=== PATIENT | female | born 1950 | race Caucasian/White ===

== ENCOUNTER → 2021-07-31 | Outpatient (CLI) | payer MEDICARE, BC ==
--- NOTE | 2021-07-31 11:56 | KCIC ---
Examination: MRI of the right hip without contrast HISTORY: History of chronic right hip pain COMPARISON: None available TECHNIQUE: Multiplanar, multisequence MR imaging of the right hip were performed without contrast FINDINGS: Right femoral head is within the acetabulum. The attachment of the hamstring tendon to the ischial tu berosity, attachment of the iliopsoas tendon to the lesser trochanter and the attachment of the rectu s femoris tendon to the anterior inferior iliac spine grossly appears intact. There is increased T2 signal identified in the attachment of the gluteus minimus tendon to the greate r trochanter likely tendinosis with small amount of fluid identified in the greater trochanteric burs a. Mild joint space loss right hip joint likely degenerative changes. Mild superficial fraying of the la chana likely cartilage identified. IMPRESSION: 1. Increased T2 signal identified in the attachment of the gluteus minimus tendon to the greater tro chanter likely tendinosis with small amount of fluid identified in the greater trochanteric bursa lik aida trochanteric bursitis. 2. Mild degenerative changes right hip joint. Electronically signed by: Billy Melissa MD (07/31/2021 11:54 AM) [id number]
== END ==
LOC: KCIC MRI 10:03
PROVIDERS: ATTEND Orthopaedic Surgery
DX: M16.11 Unilateral primary osteoarthritis, right hip (principal); M76.891 Other specified enthesopathies of right lower limb, excluding foot
CPT/HCPCS: 73721

== ENCOUNTER 2021-08-05 08:16 | Emergency (ER) | payer MEDICARE, BC ==
[~2021-08-05] VITALS: Ht 175.3 cm; Wt 61.0 kg
[2021-08-05] MEDS ORDERED: diphenhydrAMINE HCL 25 MG CAPSULE PO ONE (09:30)
[2021-08-05] MEDS ORDERED: FAMOTIDINE 20 MG TABLET. PO ONE (09:30)
--- NOTE | 2021-08-05 09:40 | PHYS DOC ---
Past Medical History Additional Past Medical Histor: ULCERATIVE COLITIS, OSTEOPOROSIS, KIDNEY STONES Past Surgical History: Hysterectomy, Tubal ligation Additional Past Surgical Histo: BROKEN RIGHT ARM 2006 Smoking Status: Never Smoker Alcohol Use: None Drug Use: None General Adult EDM: Chief Complaint: SKIN RASH/ABSCESS HPI: HPI: Patient is a 71-year-old female who presents today with a rash. Patient states that she saw Dr. Stephens the orthopedic doctor on on and was prescribed a Medrol Dosepak to be taken for some tendinitis that the patient has been experiencing, she said she took day 1 dosing and this morning she woke up with a rash on her upper chest and neck area, she also states that she is tired and fatigued and she states her blood pressure is elevated today. Patient states she does not recall if she has taken steroids in the past for any other condition, and she is concerned that this might be an allergic reaction to the steroids. Patient denies chest pain, shortness of air, fever chills, or any difficulty swallowing saliva. Review of Systems: Review of Systems: Constitutional: Denies fever or chills. [] Eyes: Denies change in visual acuity. [] HENT: Denies nasal congestion or sore throat. [] Respiratory: Denies cough or shortness of breath. [] Cardiovascular: Denies chest pain or edema. [] GI: Denies abdominal pain, nausea, vomiting, bloody stools or diarrhea. [] : Denies dysuria. [] Musculoskeletal: Denies back pain or joint pain. [] Integument: rash. [] Neurologic: Denies headache, focal weakness or sensory changes. [] Endocrine: Denies polyuria or polydipsia. [] Lymphatic: Denies swollen glands. [] Psychiatric: Denies depression or anxiety. [] Heart Score: C/O Chest Pain: No Risk Factors: Risk Factors: DM, Current or recent (<one month) smoker, HTN, HLP, family history of CAD, obesity. Risk Scores: Score 0 - 3: 2.5% MACE over next 6 weeks - Discharge Home Score 4 - 6: 20.3% MACE over next 6 weeks - Admit for Clinical Observation Score 7 - 10: 72.7% MACE over next 6 weeks - Early Invasive Strategies Current Medications: Current Medications Medications (Trade) Dose Ordered Sig/Debora Start Time Stop Time Status Last Admin Dose Admin Diphenhydramine HCl (Benadryl) 25 mg 1X ONCE 08/05/21 09:30 08/05/21 09:31 DC 08/05/21 09:31 25 MG Famotidine (Pepcid) 20 mg 1X ONCE 08/05/21 09:30 08/05/21 09:31 DC 08/05/21 09:31 20 MG Allergies: Allergies: Allergies Coded Allergies Type Severity Reaction Last Updated Verified prochlorperazine Allergy Intermediate MUSCLE SPASMS, ANXIETY 08/05/21 Yes morphine Allergy Mild Nausea 08/05/21 Yes Physical Exam: PE: Constitutional: Well developed, well nourished, no acute distress, non-toxic appearance. [] HENT: Normocephalic, atraumatic, bilateral external ears normal, oropharynx moist, no oral exudates, nose normal. [] Eyes: PERRLA, EOMI, conjunctiva normal, no discharge. [] Neck: Normal range of motion, no tenderness, supple, no stridor. [] Cardiovascular:Heart rate regular rhythm, no murmur [] Lungs & Thorax: Bilateral breath sounds clear to auscultation [] Abdomen: Bowel sounds normal, soft, no tenderness, no masses, no pulsatile masses. [] Skin: Reddened rash noted on the neck and chest area Back: No tenderness, no CVA tenderness. [] Extremities: No tenderness, no cyanosis, no clubbing, ROM intact, no edema. [] Neurologic: Alert and oriented X 3, normal motor function, normal sensory function, no focal deficits noted. [] Psychologic: Affect normal, judgement normal, mood normal. [] Current Patient Data: Vital Signs: Vital Signs Date Time Temp Pulse Resp B/P (MAP) Pulse Ox O2 Delivery O2 Flow Rate FiO2 08/05/21 10:00 63 16 188/78 (114) 100 Room Air 08/05/21 08:22 98.7 64 16 179/82 (114) 100 Room Air 98.7 Vital Signs Date Time Temp Pulse Resp B/P (MAP) Pulse Ox O2 Delivery O2 Flow Rate FiO2 08/05/21 08:22 98.7 64 16 179/82 (114) 100 Room Air 98.7 EKG: EKG: [] Radiology/Procedures: Radiology/Procedures: [] Course & Med Decision Making: Course & Med Decision Making Pertinent Labs and Imaging studies reviewed. (See chart for details) 1010 patient states her symptoms have improved, she is to stop the Medrol D osepak at this time, she is to take Benadryl 25 mg OTC every 6 hours for the next 48 to 72 hours and then take as needed, she is also to take Pepcid 20 mg OTC twice daily for the next 5 days. She is also to contact Dr. Stephens on Saturday to let him know that she had to stop the Medrol Dosepak due to a possible allergic reaction. Patient verbalizes understanding is agreeable with plan of care. Dragon Disclaimer: Dragon Disclaimer: This electronic medical record was generated, in whole or in part, using a voice recognition dictation system. Departure Departure Impression: Primary Impression: Allergic drug rash Disposition: HOME / SELF CARE / HOMELESS Condition: STABLE Referrals: ANITA MEADOWS III, MD (PCP) VITALIY STEPHENS Jr. DO Patient Instructions: Drug Rash Additional Instructions: Stop the Medrol Dosepak Take [id number] Benadryl 1 tablet every 6 hours for the next 48 hours and then take as needed Take [id number] Pepcid 20 mg 1 tablet twice daily for the next 5 days Follow-up with Dr. Stephens on Saturday by phone to let him know that you had a rash when taking the Medrol Dosepak Return here to the emergency department should you have chest pain, any increased work of breathing, any swelling of your lips or face, or any difficulty controlling your saliva. BRAD SHIPLEY PRESERVATIONIST August 05, 2021 09:40
[2021-08-05 10:00] VITALS: BP 188/78
== END 2021-08-05 10:43 | disposition home or self-care (01) ==
LOC: ER 08:16
DX: L27.0 Generalized skin eruption due to drugs and medicaments taken internally (principal); Z88.5 Allergy status to narcotic agent; Z88.8 Allergy status to other drugs, medicaments and biological substances
CPT/HCPCS: 99283; Q0163

== ENCOUNTER 2021-08-10 13:57 | Emergency (ER) | payer MEDICARE, BC ==
[~2021-08-10] VITALS: Ht 175.3 cm; Wt 61.3 kg
[2021-08-10] MEDS ORDERED: ONDANSETRON PF 4 MG/2 ML VIAL. ONE (14:27)
[2021-08-10] MEDS ORDERED: ONDANSETRON PF 4 MG/2 ML VIAL. IVP ONE (14:30)
[2021-08-10 14:34] LABS: BASO # 0.1 x10^3/uL (0.0-0.2); BASO % 1 % (0-3); EOS # 0.2 x10^3/uL (0.0-0.7); EOS % 2 % (0-3); HEMATOCRIT 41.7 % (36.0-47.0); HEMOGLOBIN 14.4 g/dL (12.0-15.5); LYMPH # 3.2 x10^3/uL (1.0-4.8); LYMPH % 37 % (24-48); MEAN CORPUSCULAR HEMOGLOBIN 31 pg (25-35); MEAN CORPUSCULAR HGB CONC 35 g/dL (31-37); MEAN CORPUSCULAR VOLUME 91 fL (79-100); MONO # 0.6 x10^3/uL (0.0-1.1); MONO % 7 % (0-9); NEUT # 4.6 x10^3/uL (1.8-7.7); NEUT % 54 % (31-73); PLATELET COUNT 329 x10^3/uL (140-400); RED CELL DISTRIBUTION WIDTH 13.1 % (11.5-14.5); WHITE BLOOD COUNT 8.6 x10^3/uL (4.0-11.0)
--- NOTE | 2021-08-10 14:54 | RAD ---
CT head without contrast PQRS statement: CT scans at this facility use dose reduction including either automated exposure cont rol, iterative reconstructions, and /or weight based radiation dosing via mA and kV modification when appropriate to reduce radiation dose to as low as reasonably achievable. HISTORY: Dizziness. Syncope. FINDINGS: No intracranial hemorrhage, mass, hydrocephalus, extra-axial fluid collections or infarctio n. Orbits, mastoids and bones are normal. IMPRESSION: Normal exam. Electronically signed by: Lazarus Thao MD (08/10/2021 2:52 PM) [facility] [place]
[2021-08-10 15:01] LABS: CALCIUM 10.3 mg/dL (8.5-10.1); CREATININE 0.8 mg/dL (0.6-1.0); GFR 70.3; POTASSIUM 4.5 mmol/L (3.5-5.1)
--- NOTE | 2021-08-10 15:07 | RAD ---
XR CHEST 2V History: Dizziness, near syncope Comparison: None. Technique: PA and lateral chest radiographs. Findings: The lungs are adequately and symmectrically inflated. No airspace consolidation, pleural effusion or pneumothorax. Calcified right lower lobe granuloma. The cardiomediastinal silhoutte and pulmonary vas culature are within normal limits. Soft tissues and osseous structures are unremarkable. Impression: 1. No acute cardiopulmonary process. Electronically signed by: Rory Herrera MD (08/10/2021 3:04 PM) [id number]
[2021-08-10 15:08] LABS: ALBUMIN 4.2 g/dL (3.4-5.0); ALBUMIN/GLOBULIN RATIO 1.4 (1.0-1.7); TOTAL BILIRUBIN 0.4 mg/dL (0.2-1.0); TOTAL PROTEIN 7.3 g/dL (6.4-8.2)
[2021-08-10] MEDS ORDERED: METOCLOPRAMIDE HCL 10 MG/2 ML VIAL. IVP ONE (15:30)
[2021-08-10] MEDS ORDERED: IV NORMAL SALINE 1000ML BAG 1,000 ML IV ONE (15:30)
[2021-08-10 15:47] LABS: INFLUENZA A PATIENT NEGATIVE (NEGATIVE); INFLUENZA B PATIENT NEGATIVE (NEGATIVE)
--- NOTE | 2021-08-10 15:59 | EKG ---
[facility] [address] [place] [address] Test Date: 2021-08-10 Test Time: 14:33:15 Pat Name: MANINDER TOVAR Department: Room: Gender: F [employer]er: : [id number] Requested By: RACHELL BURKS Order Number: [id number] Reading MD: Maximilian Rush Measurements Intervals [place] Rate: 67 P: 67 PA: 146 QRS: 62 QRSD: 72 T: 49 QT: 414 QTc: 440 Interpretive Statements SINUS RHYTHM Electronically Signed On 08-11-2021 10:05:30 CDT by Maximilian Rush
[2021-08-10] MEDS ORDERED: MECLIZINE HCL 12.5 MG TABLET. PO ONE (17:15)
[2021-08-10 17:26] LABS: BACTERIA,URINE 0 /HPF (0-FEW); RBC,URINE 0 /HPF (0-2); WBC,URINE 0 /HPF (0-4)
[2021-08-10] MEDS ORDERED: ONDA4TAB12 PO (18:57)
[2021-08-10] MEDS ORDERED: MECL-75 PO (18:57)
--- NOTE | 2021-08-10 18:58 | PHYS DOC ---
Past Medical History Additional Past Medical Histor: ULCERATIVE COLITIS, OSTEOPOROSIS,OA Past Surgical History: Hysterectomy, Tubal ligation Additional Past Surgical Histo: BROKEN RIGHT ARM 2006 Smoking Status: Never Smoker Alcohol Use: None Drug Use: None General Adult EDM: Chief Complaint: WEAKNESS/GENERALIZED HPI: HPI: Patient is a 71-year-old female who presents to the emergency department complaining of severe dizziness, onset approximately 3 hours ago while shopping at [employer]. Patient states it worsens when she turns her head or sits up or sits down. Patient reports everything is spinning and wobbling. Patient reports severe nausea with vomiting. Patient reports she had yellow vomitus, patient reports relief in symptoms if she stays very still. Patient states she did have a 2-week period of feeling lethargic and physically tired prior to symptoms starting. Patient reports that this dizziness has exacerbated her tired feeling. Patient denies chest pains, chest or nasal congestion, denies abdominal pain, constipation or diarrhea, patient states she is passing a lot of gas lately. Patient denies a surgical history, states she was on prednisone for hip pain, had an allergic reaction and stopped 4 days into her Medrol Dosepak regimen. Patient denies other physical complaints or physical concerns. Review of Systems: Review of Systems: 14 body systems of review of systems have been reviewed. See HPI for pertinent positives and negative responses, otherwise all other systems are negative, nonpertinent or noncontributory. Constitutional: Negative except as outlined in HPI above. Skin: Negative except as outlined in HPI above. Eyes: Negative except as outlined in HPI above. HENT: Negative except as outlined in HPI above. Respiratory: Negative except as outlined in HPI above. Cardiovascular: Negative except as outlined in HPI above. GI: Negative except as outlined in HPI above. : Negative except as outlined in HPI above. Musculoskeletal: Negative except as outlined in HPI above. Integument: Negative except as outlined in HPI above. Neurologic: Negative except as outlined in HPI above. Endocrine: Negative except as outlined in HPI above. Lymphatic: Negative except as outlined in HPI above. Psychiatric: Negative except as outlined in HPI above. Heart Score: C/O Chest Pain: No Risk Factors: Risk Factors: DM, Current or recent (<one month) smoker, HTN, HLP, family history of CAD, obesity. Risk Scores: Score 0 - 3: 2.5% MACE over next 6 weeks - Discharge Home Score 4 - 6: 20.3% MACE over next 6 weeks - Admit for Clinical Observation Score 7 - 10: 72.7% MACE over next 6 weeks - Early Invasive Strategies Current Medications: Current Medications Medications (Trade) Dose Ordered Sig/Debora Start Time Stop Time Status Last Admin Dose Admin Lorazepam (Ativan Inj) 1 mg 1X ONCE 08/10/21 16:30 08/10/21 16:31 DC 08/10/21 16:24 1 MG Meclizine HCl (Antivert) 25 mg 1X ONCE 08/10/21 17:15 08/10/21 17:16 DC 08/10/21 17:31 25 MG Metoclopramide HCl (Reglan Vial) 10 mg 1X ONCE 08/10/21 15:30 08/10/21 15:31 DC 08/10/21 15:31 10 MG Ondansetron HCl (Zofran) 4 mg STK-MED ONCE 08/10/21 14:27 08/10/21 14:27 DC Sodium Chloride 1,000 ml @ 1,000 mls/hr 1X ONCE 08/10/21 15:30 08/10/21 16:29 DC 08/10/21 14:28 1,000 MLS/HR Allergies: Allergies: Allergies Coded Allergies Type Severity Reaction Last Updated Verified prochlorperazine Allergy Intermediate MUSCLE SPASMS, ANXIETY 08/05/21 Yes morphine Allergy Mild Nausea 08/05/21 Yes prednisone Allergy Unknown RASH,WEAKNESS 08/10/21 Yes Physical Exam: PE: Constitutional: Well developed, well nourished, no acute distress, non-toxic appearance. 71-year-old female with vomiting with periods of hyperventilation during physical examination. HENT: Normocephalic, atraumatic. Oropharynx moist, nonerythematous, bilateral TMs intact and within normal limits, there is no lymphadenopathy of the head or neck appreciated, no peritonsillar swelling, no uvular swelling or edema or deviation, no laryngeal edema appreciated. Patient speaking in normal voice tones. Eyes: Conjunctiva normal, no discharge. Neck: Normal range of motion, no stridor. No meningismus signs, no nuchal rigidity. Cardiovascular: No cyanosis appreciated, distal cap refill less than 2 seconds. Lungs & Thorax: Patient is in no respiratory distress, no audible adventitious lung sounds appreciated. Lung sounds clear to auscultation all lung yin. Abdomen: Nontender, no abnormalities noted. Skin: Warm, dry, no erythema, no rash. Back: No tenderness, no deformities. Extremities: No tenderness, no cyanosis, no clubbing, ROM intact, no edema. Neurologic: Alert and oriented X 3, normal motor function, normal sensory function, no focal deficits noted. Positive Andrez-Hallpike maneuver. Cerebellar functioning intact, satisfactory rapid movement/nose to finger test/upce-nz-qnio test. Psychologic: Affect normal, judgement normal, mood normal. Current Patient Data: Labs: Laboratory Tests Test 08/10/21 14:13 08/10/21 15:03 08/10/21 17:04 White Blood Count 8.6 x10^3/uL (4.0-11.0) Red Blood Count 4.60 x10^6/uL (3.50-5.40) Hemoglobin 14.4 g/dL (12.0-15.5) Hematocrit 41.7 % (36.0-47.0) Mean Corpuscular Volume 91 fL (79-100) Mean Corpuscular Hemoglobin 31 pg (25-35) Mean Corpuscular Hemoglobin Concent 35 g/dL (31-37) Red Cell Distribution Width 13.1 % (11.5-14.5) Platelet Count 329 x10^3/uL (140-400) Neutrophils (%) (Auto) 54 % (31-73) Lymphocytes (%) (Auto) 37 % (24-48) Monocytes (%) (Auto) 7 % (0-9) Eosinophils (%) (Auto) 2 % (0-3) Basophils (%) (Auto) 1 % (0-3) Neutrophils # (Auto) 4.6 x10^3/uL (1.8-7.7) Lymphocytes # (Auto) 3.2 x10^3/uL (1.0-4.8) Monocytes # (Auto) 0.6 x10^3/uL (0.0-1.1) Eosinophils # (Auto) 0.2 x10^3/uL (0.0-0.7) Basophils # (Auto) 0.1 x10^3/uL (0.0-0.2) Sodium Level 137 mmol/L (136-145) Potassium Level 4.5 mmol/L (3.5-5.1) Chloride Level 100 mmol/L (98-107) Carbon Dioxide Level 19 mmol/L (21-32) L Anion Gap 18 (6-14) H Blood Urea Nitrogen 15 mg/dL (7-20) Creatinine 0.8 mg/dL (0.6-1.0) Estimated GFR (Cockcroft-Gault) 70.3 BUN/Creatinine Ratio 19 (6-20) Glucose Level 121 mg/dL (70-99) H Calcium Level 10.3 mg/dL (8.5-10.1) H Magnesium Level 2.0 mg/dL (1.8-2.4) Total Bilirubin 0.4 mg/dL (0.2-1.0) Aspartate Amino Transferase (AST) 39 U/L (15-37) H Alanine Aminotransferase (ALT) 30 U/L (14-59) Alkaline Phosphatase 56 U/L (46-116) Troponin I High Sensitivity 6 ng/L (4-50) Total Protein 7.3 g/dL (6.4-8.2) Albumin 4.2 g/dL (3.4-5.0) Albumin/Globulin Ratio 1.4 (1.0-1.7) Lipase 71 U/L (73-393) L Influenza Type A Antigen Negative (NEGATIVE) Influenza Type B Antigen Negative (NEGATIVE) SARS-CoV-2 Antigen (Rapid) Negative (NEGATIVE) Urine Collection Type Void Urine Color (Auto) Light yellow Urine Turbidity Clear Urine pH (Auto) 7.0 (<5.0-8.0) Urine Specific [place] 1.012 (1.000-1.030) Urine Protein (Auto) Negative mg/dL (Negative) Urine Glucose (Auto)(UA) Negative mg/dL (Negative) Urine Ketones (Auto) 80 mg/dL (Negative) Urine Blood (Auto) Negative (Negative) Urine Nitrite Negative (Negative) Urine Bilirubin (Auto) Negative (Negative) Urine Urobilinogen (Auto) Normal mg/dL (Normal) Urine Leukocyte Esterase (Auto) Negative (Negative) Urine RBC 0 /HPF (0-2) Urine WBC 0 /HPF (0-4) Urine Squamous Epithelial Cells Few /LPF Urine Bacteria 0 /HPF (0-FEW) Urine Mucus Slight /LPF Laboratory Tests 08/10/21 14:13 Laboratory Tests 08/10/21 14:13 Vital Signs: Vital Signs Date Time Temp Pulse Resp B/P (MAP) Pulse Ox O2 Delivery O2 Flow Rate FiO2 08/10/21 17:02 70 25 163/70 (101) 96 Room Air 08/10/21 13:57 97.5 97.5 EKG: EKG: EKG performed at 1433 by ED nursing staff shows a normal sinus rhythm without other ectopy, heart rate 67 bpm, MT interval point 146, QTc interval 0.440, no acute STEMI, no ACS, no acute ischemia appreciated, EKG interpreted by ED attending physician Dr. Amanda. Radiology/Procedures: Radiology/Procedures: PROCEDURE: CHEST PA & LATERAL XR CHEST 2V History: Dizziness, near syncope Comparison: None. Technique: PA and lateral chest radiographs. Findings: The lungs are adequately and symmectrically inflated. No airspace consolidation, pleural effusion or pneumothorax. Calcified right lower lobe granuloma. The cardiomediastinal silhoutte and pulmonary vasculature are within normal limits. Soft tissues and osseous structures are unremarkable. Impression: 1. No acute cardiopulmonary process. Electronically signed by: Rory Herrera MD (08/10/2021 3:04 PM) [id number] PROCEDURE: CT HEAD WO CONTRAST CT head without contrast PQRS statement: CT scans at this facility use dose reduction including either automated exposure control, iterative reconstructions, and /or weight based radiation dosing via mA and kV modification when appropriate to reduce radiation dose to as low as reasonably achievable. HISTORY: Dizziness. Syncope. FINDINGS: No intracranial hemorrhage, mass, hydrocephalus, extra-axial fluid collections or infarction. Orbits, mastoids and bones are normal. IMPRESSION: Normal exam. Electronically signed by: Lazarus Thao MD (08/10/2021 2:52 PM) [facility] Course & Med Decision Making: Course & Med Decision Making We willPertinent Labs and Imaging studies reviewed. (See chart for details) 71-year-old female, vital signs reviewed, presents to the emergency department complaining of a sudden onset of dizziness while shopping today at approximately 1500. Patient's physical examination and presentation is consistent with peripheral vertigo. There was no abnormal cerebellar exam or headache to suggest central vertigo. Will order CT head without contrast, rapid flu and COVID testing, EKG, high-sensitivity troponin I, lipase, magnesium level, CMP, CBC, PA and lateral chest. Will give Zofran for nausea, 1 mg Ativan for dizziness. Patient reports no relief with nausea, reports dizziness is starting to resolve, will give additional milligram of Ativan, 1 L normal saline, 10 mg Reglan IV. Patient ambulated to bathroom for urinalysis assay with assist x1, reports dizziness is resolving but still feels the room spinning some, patient states her nausea has resolved, will give 25 mg oral meclizine. After period of time, patient reports dizziness has resolved, patient denies any headaches, nausea, patient is nontoxic in appearance, Discussed with patient will prescribe meclizine and ODT Zofran to take for returning symptoms, strict follow-up with primary care this week for ongoing symptoms, return to ER precautions or concerns were reviewed, patient gave verbal understanding of and is amenable to ED discharge planning. Discussed with the patient all findings and diagnostic testing as well as the need to follow-up with their primary care provider for further evaluation and treatment or return to the ED if any new or worsening symptoms. Strict return precautions were also discussed at length, the patient voiced understanding and agreement with the discharge planning. The patient was nontoxic in appearance, in no apparent distress, and hemodynamically stable at the time of disposition. Dragon Disclaimer: Dragon Disclaimer: This electronic medical record was generated, in whole or in part, using a voice recognition dictation system. Departure Departure Impression: Primary Impression: Peripheral vertigo, unspecified Disposition: HOME / SELF CARE / HOMELESS Condition: GOOD Referrals: ANITA MEADOWS III, MD (PCP) Patient Instructions: Vertigo Additional Instructions: You were seen today in the emergency department for an onset of dizziness with nausea and vomiting. Your symptoms were relieved with IV Zofran, IV Reglan, IV Ativan, and a tablet of meclizine. You were also given a liter normal saline. Your symptoms seem to have resolved. Your lab work, EKG, urinalysis, and CT scan of your head did not show any concerning findings. This is reassuring that your dizziness presentation may be from a viral source. As we discussed, these tend to run their course, I am prescribing you more dizziness medication called meclizine to take as needed for returning dizziness, I am also prescribing you Zofran ODT to use for any returning nausea. Please make sure that you see your doctor this week or the beginning of next week for ongoing symptoms. Return to the emergency department for worsening symptoms or other concerns. Thank you for visiting our Emergency Department. It was a pleasure taking care of you today in the emergency department and we appreciate you trusting us with your care. If any additional problems come up don't hesitate to return to visit us. Please follow up with your primary care provider so they can plan additional care if needed and know about the problem that you had. If symptoms worsen come back to the Emergency Department. Any concerning symptoms that start such as chest pain, shortness of air, weakness or numbness on one side of the body, running high fevers or any other concerning symptoms return to the ER. Scripts Ondansetron (ONDANSETRON ODT) 4 Mg Tab.rapdis 1 TAB PO PRN Q6-8HRS, #16 TAB 0 Refills Prov: RACHELL BURKS APRN 08/10/21 Meclizine Hcl (MECLIZINE HCL) 25 Mg Tablet 1 TAB PO PRN TID for Dizzyness, #30 TAB 0 Refills Prov: RACHELL BURKS APRN 08/10/21 RACHELL BURKS APRN August 10, 2021 18:58
[2021-08-10 19:28] VITALS: BP 128/59
== END 2021-08-10 19:28 | disposition home or self-care (01) ==
LOC: ER 13:57
DX: H81.399 Other peripheral vertigo, unspecified ear (principal); R11.2 Nausea with vomiting, unspecified; R53.83 Other fatigue; Z20.822 Contact with and (suspected) exposure to COVID-19; Z90.710 Acquired absence of both cervix and uterus; Z98.51 Tubal ligation status; Z88.5 Allergy status to narcotic agent; Z88.8 Allergy status to other drugs, medicaments and biological substances
CPT/HCPCS: 36415; 70450; 71046; 80053; 81001; 83690; 83735; 84484; 85025; 87428; 93005; 96361; 96374; 96375; 96376; 99285; J2060; J2405; J2765; J7030; J8597